=== PATIENT | female | born 1995 | race Caucasian/White ===

== ENCOUNTER 2020-03-09 03:27 | Inpatient (IN) | payer BC, MEDICAID ==
[2020-03-09 04:32] LABS: APPEARANCE,URINE CLOUDY; BILIRUBIN,URINE NEGATIVE (NEGATIVE); COLOR,URINE YELLOW; GLUCOSE, URINE NEGATIVE (NEGATIVE); KETONES,URINE NEGATIVE (NEGATIVE); LEUKOCYTE ESTERASE,URINE MODERATE (NEGATIVE); NITRITE,URINE NEGATIVE (NEGATIVE); PROTEIN,URINE NEGATIVE (NEGATIVE); URINE SPECIFIC GRAVITY 1.018; UROBILINOGEN,URINE NEGATIVE mg/dL (<2.0)
[2020-03-09 04:48] LABS: URINE BARBITURATES SCREEN NEGATIVE; URINE BENZODIAZEPINES SCREEN NEGATIVE; URINE COCAINE SCREEN NEGATIVE; URINE MARIJUANA (THC) SCREEN NEGATIVE; URINE METHADONE SCREEN NEGATIVE; URINE PHENCYCLIDINE SCREEN NEGATIVE
[2020-03-09 04:52] LABS: URINE AMPHETAMINES SCREEN NEGATIVE
[2020-03-09] MEDS ORDERED: RINGERS SOLUTION,LACTATED 1,000 ML IV ONE (05:42)
[2020-03-09] MEDS: RINGERS SOLUTION,LACTATED 1,000 ML IV PRN ×3 (06:02→16:17)
[2020-03-09] MEDS ORDERED: OXYTOCIN/0.9 % SODIUM CHLORIDE 30 UNIT/500 ML RTUINJ IV PRN ×2 (07:00→17:49)
[2020-03-09] MEDS ORDERED: OXYTOCIN 10 UNIT/ML VIAL ONE (07:21)
[2020-03-09] MEDS ORDERED: OXYTOCIN/0.9 % SODIUM CHLORIDE 30 UNIT/500 ML RTUINJ ONE (07:21)
[2020-03-09] MEDS ORDERED: LIDOCAINE 1% INJ-PF (10 MG/ML) 30 ML SDV ONE (07:21)
[2020-03-09] MEDS ORDERED: MISOPROSTOL 0.2 MG TABLET ONE (07:21)
[2020-03-09 08:37] LABS: ABSOLUTE BASOPHILS # (AUTO) 0.1 10^3/uL (0.0-0.2); ABSOLUTE EOSINOPHILS # (AUTO) 0.1 10^3/uL (0.0-0.6); ABSOLUTE LYMPHOCYTES (AUTO) 2.5 10^3/uL (0.5-4.7); ABSOLUTE NEUT (AUTO) 9.3 10^3/uL (1.7-8.2); BASOPHILS % (AUTO) 0.8 % (0-2); EOSINOPHILS % (AUTO) 0.5 % (0-6); HEMOGLOBIN 12.7 g/dL (12.0-15.5); LYMPHOCYTES % (AUTO) 19.3 % (13-45); MEAN CORPUSCULAR HEMOGLOBIN 26.5 pg (27.0-33.4); MEAN CORPUSCULAR HGB CONC 33.3 g/dL (32.0-36.0); MEAN CORPUSCULAR VOLUME 80 fl (80-97); MONOCYTES % (AUTO) 7.9 % (3-13); PLATELET COUNT 301 10^3/uL (150-450); RED BLOOD COUNT 4.77 10^6/uL (3.72-5.28); RED CELL DISTRIBUTION WIDTH 14.2 % (11.5-14.0); SEGMENTED NEUTROPHILS % (AUTO) 71.5 % (42-78); TOTAL CELLS COUNTED % (AUTO) 100 %
[2020-03-09] MEDS ORDERED: NALBUPHINE HCL INJ 10 MG/1 ML AMPULE ONE (08:51)
[2020-03-09] MEDS ORDERED: PROMETHAZINE HCL INJ 25 MG/1 ML VIAL ONE (08:51)
--- NOTE | 2020-03-09 10:31 | Admission Physical ---
Datetime Report Generated by CPN: 03/09/2020 10:30 CURRENT ADMISSION Chief Complaint: Suspected Ruptured Membranes Indication for Induction: Other Admit Impression : Term, Intrauterine Admit Plan: Admit to Unit; Initiate Labor Induction Protocol ALLERGIES Medication Allergies: No Medication Allergies: No Known Allergies (03/09/2020) Latex: No Latex Allergies (Annotations: Data stored by CPN on behalf of user) OBSTETRICAL HISTORY EDC: 03/04/2020 00:00 : 1 Para: 0 Gestational Diabetes: No Rh Sensitization: No Incompetent Cervix: No JOAQUIN: No Infertility: No ART Treatment: No Uterine Anomaly: No IUGR: No Hx Previous C/S: No Macrosomia: No Hx Loss/Stillborn: No PIH: No Hx : No Placenta Previa/Abruption: No Depression/PP Depression: No PTL/PROM: No Post Hemorrhage: No Current Procedures: Ultrasound; NST Obstetrical History Comments: G1 - current MEDICAL HISTORY Diabetes: No Blood Transfusion: No Pulmonary Disease (Asthma, TB): No Breast Disease: No Hypertension: No Kindergarten Paraprofessional Surgery: No Heart Disease: No Hosp/Surgery: No Autoimmune Disorder: No Anesthetic Complications: No Kidney Disease: No Abnormal Pap Smear: No Neuro/Epilepsy: No Psychiatric Disorders: No Other Medical Diseases: No Hepatitis/Liver Disease: No Significant Family History: No Varicosities/Phlebitis: No Trauma/Violence : No Thyroid Dysfunction: No INFECTIOUS HISTORY Gonorrhea: No Genital Herpes: No Chlamydia: No Tuberculosis: No Syphilis: No Hepatitis: No HIV/AIDS Exposure: No Rash or Viral Illness: No HPV: No PHYSICAL EXAM General: Normal HEENT: Normal Neurologic: Normal Thyroid: Normal Heart: Normal Lungs: Normal Breast: Deferred Back: Normal Abdomen: Normal Genitourinary Exam: Normal Extremities: Normal DTRs: Normal Pelvic Type: Adequate FETUS A EGA: 40.5 INFORMED CONSENT Signature: with User ID: [email or web address]
[2020-03-09] MEDS ORDERED: ONDANSETRON HCL INJ/PF 4 MG/2 ML SDV ONE (11:33)
[2020-03-09] MEDS ORDERED: EPHEDRINE SULFATE INJ 50 MG/1 ML AMPULE ONE (12:06)
[2020-03-09] MEDS ORDERED: FENTANYL/BUPIVACAINE/NS/PF 300 MCG/150 ML RTUINJ EPI ONE (12:07)
[2020-03-09] MEDS ORDERED: ROPIVACAINE HCL 0.2% INJ/PF (2 MG/ML) 20 ML SDV ONE (12:07)
[2020-03-09] MEDS ORDERED: HYDROXYZINE HCL INJ 50 MG/1 ML VIAL INJ ONE (16:00)
[2020-03-09] MEDS ORDERED: ACETAMINOPHEN 650 MG SUPP.RECT PR PRN (17:49)
[2020-03-09] MEDS ORDERED: DIBUCAINE 1% OINTMENT 28 GM TP PRN (17:49)
[2020-03-09] MEDS ORDERED: DIPH/PERTUSS(ACELL)/TETANUS VAC/PF 0.5 ML SYR (>=10YO) IM PRN (17:49)
[2020-03-09] MEDS ORDERED: FAMOTIDINE 20 MG TABLET PO PRN (17:49)
[2020-03-09] MEDS ORDERED: MEASLES,MUMPS&RUBELLA VACC/PF 0.5 ML VIAL SUBCUT PRN (17:49)
[2020-03-09] MEDS ORDERED: PSEUDOEPHEDRINE HCL 30 MG TABLET PO PRN (17:49)
[2020-03-09] MEDS ORDERED: ZOLPIDEM TARTRATE 5 MG TABLET PO PRN (17:49)
[2020-03-09] MEDS ORDERED: ACETAMINOPHEN 325 MG TABLET PO PRN (17:49)
[2020-03-09] MEDS ORDERED: DIPHENHYDRAMINE HCL 25 MG CAPSULE PO PRN (17:49)
[2020-03-09] MEDS ORDERED: MAG HYDROX/AL HYDROX/SIMETH SUSP 30 ML UDCUP PO PRN (17:49)
[2020-03-09] MEDS ORDERED: GLYCERIN/WITCH HAZEL LEAF 1 EACH MED..WIPE TP PRN (17:49)
[2020-03-09] MEDS ORDERED: VARICELLA VACC/PF (1350 UNIT/0.5 ML) 0.5 ML VIAL SUBCUT PRN (17:49)
[2020-03-09] MEDS ORDERED: MAGNESIUM HYDROXIDE SUSP 30 ML UDCUP PO PRN (17:49)
--- NOTE | 2020-03-09 18:33 | Warning Signs in Babies ---
VOD Warning Signs Datetime Report Generated by N: 03/09/2020 18:33 VOD#[id number] -Warning Signs in Babies: Viewed with Parent(s)/Family (03/09/2020 18:30:Yari Dickson RN)
--- NOTE | 2020-03-09 19:22 | Delivery Summary ---
Del Sum A-C Datetime Report Generated by CPN: 03/09/2020 19:22 DELIVERY PERSONNEL DELIVERY PERSONNEL: [id number] Delivery Doctor:: Sabino Najera MD Labor and Delivery Nurse:: Yari Dickson RNexterminator Nurse:: Akash Sy RN Nursery Nurse:: Brandi Carrasquillo RN Radiation Engineer/LOGGING SUPERVISOR: Leah Paul, SCRAPER HAND Additional Personnel: : HermanRN MATERNAL INFORMATION Delivery Anesthesia: Epidural Medications After Delivery: Pitocin 30 Units in 500ml NS/D5W Delivery QBL: 75 Maternal Complications: Premature Rupture of Membranes LABOR SUMMARY EDC: 03/04/2020 00:00 No. Babies in Womb: 1 Attempted: No Labor Anesthesia: Epidural LABOR INFORMATION Reason for Induction: Not Applicable Onset of Labor: 03/09/2020 05:30 Complete Dilatation: 03/09/2020 16:53 Oxytocin: Augmentation Group B Beta Strep: negative Antibiotics # of Doses: 0 Name of Antibiotic Given: N/A Steroids Given: None Reason Steroids Not Administered: Not Applicable MEMBRANES Membranes Rupture Method: Spontaneous Rupture of Membranes: 03/09/2020 05:30 Length of Rupture (hr): 12.18 Amniotic Fluid Color: Clear Amniotic Fluid Amount: Small Amniotic Fluid Odor: None STAGES OF LABOR Stage 1 hr: 11 Stage 1 min: 23 Stage 2 hr: 0 Stage 2 min: 48 Stage 3 hr: 0 Stage 3 min: 3 Total Time in Labor hr: 12 Total Time in Labor min: 14 VAGINAL DELIVERY Episiotomy: None Laceration #1: Vaginal Laceration Extension #1: N/A Laceration Repair: Yes Sponge Count Correct: Yes Sharps Count Correct: Yes CSECTION DELIVERY Primary Indication: N/A Secondary Indication: N/A CSection Incidence: N/A Labor: N/A Elective: N/A CSection Incision: N/A BABY A INFORMATION Infant Delivery Date/Time: 03/09/2020 17:41 Method of Delivery: Vaginal Nurse Controlled Delivery: No Born in Route : No : N/A Forceps: N/A Vacuum Extraction: N/A Shoulder Dystocia : No PRESENTATION/POSITION BABY A Presentation: Cephalic Cephalic Presentation: Vertex Vertex Position: Right Occipital Anterior Breech Presentation: N/A PLACENTA INFORMATION BABY A Placenta Delivery Time : 03/09/2020 17:44 Placenta Method of Delivery: Expressed Placenta Status: Delivered SCORES BABY A Heart Rate 1 min: >100 bpm Resp Effort 1 min: Good Cry Reflex Irritability 1 min: Cough or Sneeze or Pulls Away Muscle Tone 1 min: Active Motion Color 1 min: Body Bowler, Extremities Blue Resuscitation Effort 1 min: Tactile Stimulation SCORE 1 MIN: 9 Heart Rate 5 min: >100 bpm Resp Effort 5 min: Good Cry Reflex Irritability 5 min: Cough or Sneeze or Pulls Away Muscle Tone 5 min: Active Motion Color 5 min: Body Bowler, Extremities Blue Resuscitation Effort 5 min: Tactile Stimulation SCORE 5 MIN: 9 INFORMATION BABY A Gestational Age at Delivery: 40.5 Gestational Status: Full Term- 39- 40.6 Weeks Infant Outcome : Liveborn Infant Condition : Stable Infant Sex: Female IDENTIFICATION BABY A Infant Verification Date/Time: 03/09/2020 17:47 ID Band Number: [id number] Mother's Name Verified: Yes RN Verifying Infant: B Barrie RN/C Nohemy RN WEIGHT/LENGTH BABY A Infant Birthweight (gm): 2714 Infant Weight (lb): 6 Infant Weight (oz): 0 Length (in): 18.75 Infant Length (cm): 47.63 CORD INFORMATION BABY A No. Cord Vessels: 3 Nuchal Cord : N/A Cord Blood Taken: Yes-For Storage (Mom's Blood type +) Suction: Mouth; Nose ASSESSMENT BABY A Complications: Multiple Variable Decels Physical Findings at Delivery: Within Normal Limits; Molding of the Head Respirations: Appears Normal Skin to Skin: Yes Director Of Religious Activities/ALS Called : No Infant Care By: Jaswinder Rizo RN Transferred To: Remains with Mother BABY B INFORMATION : N/A SIGNATURES Signature: with User ID: [email or web address]
--- NOTE | 2020-03-09 19:22 | Birth Certificate Data ---
Cert Data Datetime Report Generated by CPN: 03/09/2020 19:22 CERTIFICATE DATA Delivery Provider: Sabino Najera MD (03/09/2020 04:11:Akash Sy RN) 47a. Care: Yes (03/09/2020 04:11:Reva Sood RN) 47b. Date of First Visit: 09/05/2019 00:00 (03/09/2020 04:11:Reva Sood RN) 47c. Date of Last Visit: 03/05/2020 00:00 (03/09/2020 04:11:Reva Sood RN) 47d. Number of Visits: 10 (03/09/2020 04:11:Reva Sood RN) 48a. Number of Prev Live Births: 0 (03/09/2020 04:11:Milly Slater RN) 48b. Now Livin (03/09/2020 04:11:Milly Slater RN) 48c. Live Births Now : 0 (03/09/2020 04:11:QS system process) 48e. Losses: 0 (03/09/2020 04:11:Milly Slater RN) RISK FACTORS IN THIS 49a. Diabetes: No (03/09/2020 04:11:Joanna Rodriguez RN) 49b. Hypertension: No (03/09/2020 04:11:Joanna Rodriguez RN) 49c. Previous Births: 0 (03/09/2020 04:11:Milly Slater RN) 49d. Stillborns: No (03/09/2020 04:11:Joanna Rodriguez RN) 49d. IUGR: No (03/09/2020 04:11:Joanna Rodriguez RN) 49e. Infertility Treatment: No (03/09/2020 04:11:Joanna Rodriguez RN) 49f. Previous Cesareans: 0 (03/09/2020 04:11:Milly Slater RN) Mother's Height 50b. Height Inches: 62 (03/09/2020 03:40:QS system process) Mother's Weight 51a. Pre- Weight (lbs): 133 (03/09/2020 04:11:Reva Sood RN) 51b. Weight at Delivery (lbs): 163 (03/09/2020 03:40:QS system process) 52. Dt Last Normal Menses Began: 05/21/2019 00:00 (03/09/2020 04:11:Joanna Rodriguez RN) Infections Present/Treated 53a. Gonorrhea: No (03/09/2020 04:11:Joanna Rodriguez RN) Results this Hospital Visit : Negative (03/09/2020 04:11:Kari Rodriguez RN) 53b. Syphilis: No (03/09/2020 04:11:Joanna Rodriguez RN) 53c. Chlamydia: No (03/09/2020 04:11:Joanna Rodriguez RN) Results this Hospital Visit: Negative (03/09/2020 04:11:Kari Rodriguez RN) 53d. Hepatitis B: No (03/09/2020 04:11:Joanna Rodriguez RN) Results this Hospital Visit: Negative (03/09/2020 04:11:Joanna Rodriguez RN) 53e. Hepatitis C: Negative (03/09/2020 04:11:Kari Rodriguez RN) 53h. Mother Tested for HBsAG: Yes (03/09/2020 04:11:Kari Rodriguez RN) 53i. Date Tested: 09/05/2019 00:00 (03/09/2020 04:11:Kari Rodriguez RN) 53j. Test Result: Negative (03/09/2020 04:11:Joanna Rodriguez RN) Obstetric Procedures 54a, b, c. Obstetric Procedures: Ultrasound; NST (03/09/2020 04:11:Joanna Rodriguez RN) Cigarette Smoking Cigarette Smoking: Never Smoker. [id number] (03/09/2020 04:11:Reva Sood RN) Onset of Labor 56a. PROM >12 Hrs: 12.18 (03/09/2020 04:11:QS system process) 56b. Precipitous Labor <3 Hrs: 12 (03/09/2020 04:11:QS system process) 56c. Prolonged Labor > 20 Hrs: 12 (03/09/2020 04:11:QS system process) 57a. Induction of Labor: Augmentation (03/09/2020 04:11:Yari Dickson RN) 57c. Non-Vertex Presentation A: Vertex (03/09/2020 04:11:Akash Sy RN) 57d. Steroids - Lung Mat: None (03/09/2020 04:11:Yari Dickson RN) 57d. Steroids - Lung Mat: Not Applicable (03/09/2020 04:11:Yari Dickson RN) 57f. Mat [place] or Temp >100.4: 98.8 (03/09/2020 04:11:Thalia Caballero RN) 57g. Moderate/Heavy Meconium: Clear (03/09/2020 04:11:Yari Dickson RN) 57h. Intolerance of Labor: N/A (03/09/2020 04:11:Akash Sy RN) : N/A (03/09/2020 04:11:Milly Slater RN) 57i. Epidural/Spinal Anesthesia: Epidural (03/09/2020 04:11:Akash Sy RN) Method of Delivery 58a. Forceps - Unsuccessful A: N/A (03/09/2020 04:11:Akash Sy RN) 58b. Vacuum - Unsuccessful A: N/A (03/09/2020 04:11:Akash Sy RN) 58c. Presentation at 58c. Presentation at - A : Vertex (03/09/2020 04:11:Akash Sy RN) 58c. Presentation at - A : N/A (03/09/2020 04:11:Akash Sy RN) 58c. Presentation at - A : Cephalic (03/09/2020 04:11:Akash Sy RN) Final Route and Method of Del 58d. Baby A Route/Delivery: Vaginal (03/09/2020 17:41:Akash Sy RN) 58e. Trial of Labor Attempted: No (03/09/2020 04:11:Yari Dickson RN) 58e. Trial of Labor Attempted A: N/A (03/09/2020 04:11:Yari Dickson RN) 58e. Trial of Labor Attempted B: N/A (03/09/2020 04:11:Yari Dickson RN) Maternal Morbidity 59b. 3rd or 4th Degree Lacs: Vaginal (03/09/2020 04:11:Reva Sood RN) Birthweight Baby A: 2714 (03/09/2020 04:11:Thalia Caballero RN) 60a. Pounds : 6 (03/09/2020 04:11:QS system process) 60b. Ounces: 0 (03/09/2020 04:11:QS system process) 61. GA at Delivery Baby A: 40.5 (03/09/2020 04:11:Milly Slater RN) : Full Term- 39- 40.6 Weeks (03/09/2020 04:11:QS system process) 62a. 5 Minute Baby A: 9 (03/09/2020 04:11:QS system process)
[2020-03-09] MEDS: IBUPROFEN 800 MG TABLET PO SCH (22:12)
[2020-03-10] MEDS: ACETAMINOPHEN WITH CODEINE #3 TABLET PO PRN ×2 (04:33→18:10)
[2020-03-10] MEDS: IBUPROFEN 800 MG TABLET PO SCH ×3 (06:21→22:28)
[2020-03-10 06:51] LABS: HEMATOCRIT 31.8 % (36.0-47.0); HEMOGLOBIN 10.8 g/dL (12.0-15.5); MEAN CORPUSCULAR VOLUME 79 fl (80-97); PLATELET COUNT 247 10^3/uL (150-450); RED BLOOD COUNT 4.01 10^6/uL (3.72-5.28); WHITE BLOOD COUNT 15.8 10^3/uL (4.0-10.5)
[2020-03-10] MEDS: PRENATAL VITAMIN W DHA CAPSULE PO SCH (09:19)
[2020-03-10] MEDS: SENNOSIDES/DOCUSATE 8.6-50 MG 1 EACH TABLET PO SCH (09:20)
[2020-03-10] MEDS: FERROUS SULFATE 325 MG TABLET PO SCH ×3 (09:20→17:18)
[2020-03-10] MEDS: DOCUSATE SODIUM 100 MG CAPSULE PO SCH ×3 (09:20→17:18)
--- NOTE | 2020-03-10 12:03 | PDOC PROGRESS REPORT ---
Subjective-OB Progress Note for:: 03/10/20 Subjective: reports bleeeding slowing, pain controlled with current meds. denies needs Physical Exam (OB) Vital Signs: Temp Pulse Resp BP Pulse Ox 97.5 F 71 16 112/61 100 03/10/20 11:14 03/10/20 11:14 03/10/20 11:14 03/10/20 11:14 03/10/20 11:14 Intake & Output 03/09/20 03/10/20 03/11/20 06:59 06:59 06:59 Intake Total 1582 380 Balance 1582 380 Weight 74.4 kg - Maternal Morbidity 59. Maternal Morbidity (serious complications experinced by the mother associated with labor and delivery: None of the above - Abdomen Description: Soft Hernia Present: No Fundal Description: Firm, Midline Fundal Height: u/u - u/2 - Abdominal Distension: No distension Tenderness: Nontender - Extremities Lower extremities: Juan Carlos's sign - neg Calf: Normal, Nontender Objective-Diagnostic Laboratory: 03/10/20 06:06 03/10/20 06:06 WBC 15.8 H RBC 4.01 Hgb 10.8 L Hct 31.8 L MCV 79 L MCH 27.0 MCHC 34.0 RDW 14.0 Plt Count 247 Assessment and Plan(PN) - Time Spent with Patient Time with patient: Less than 15 minutes Medications reviewed and adjusted accordingly: Yes - Disposition Anticipated Discharge Disposition: Home, Self Care Anticipated Discharge Timeframe: within 24 hours
[2020-03-10] MEDS: BENZOCAINE/MENTHOL AEROSOL SPRAY 56 ML TOP PRN (23:14)
[2020-03-11] MEDS: IBUPROFEN 800 MG TABLET PO SCH ×2 (06:00→13:36)
[2020-03-11] MEDS: DOCUSATE SODIUM 100 MG CAPSULE PO SCH (09:01)
[2020-03-11] MEDS: FERROUS SULFATE 325 MG TABLET PO SCH (09:01)
[2020-03-11] MEDS: SENNOSIDES/DOCUSATE 8.6-50 MG 1 EACH TABLET PO SCH (09:01)
[2020-03-11] MEDS: PRENATAL VITAMIN W DHA CAPSULE PO SCH (09:01)
--- NOTE | 2020-03-11 09:05 | PDOC PROGRESS REPORT ---
Subjective-OB Progress Note for:: 03/11/20 Subjective: Doing well, ready to go home, , ambulating, eating well, scant lochia Physical Exam (OB) Vital Signs: Temp Pulse Resp BP Pulse Ox 97.7 F 70 20 95/58 L 98 03/11/20 07:35 03/11/20 07:35 03/11/20 07:35 03/11/20 07:35 03/11/20 07:35 Intake & Output 03/10/20 03/11/20 03/12/20 06:59 06:59 06:59 Intake Total 1582 680 Balance 1582 680 - PIH/Pre-Eclampsia DTR's: 1 + Clonus: Negative Headache: Absent Epigastric Pain: No Visual Changes: No - Maternal Morbidity 59. Maternal Morbidity (serious complications experinced by the mother associated with labor and delivery: None of the above - Lochia Lochia Amount: Scant < 10 ml Lochia Color: Rubra/Red - Abdomen Description: Soft Hernia Present: No Fundal Description: Firm, Midline Fundal Height: u/u - u/2 Objective-Diagnostic Laboratory: 03/10/20 06:06 Assessment and Plan(PN) - Assessment and Plan (1) Vaginal laceration Qualifiers: Vaginal laceration type: obstetric Perineal laceration degree: first degree Is this a current diagnosis for this admission?: Yes (2) Vaginal delivery Is this a current diagnosis for this admission?: Yes - Time Spent with Patient Time with patient: Less than 15 minutes Medications reviewed and adjusted accordingly: Yes - Disposition Anticipated Discharge Disposition: Home, Self Care Anticipated Discharge Timeframe: within 24 hours - home today
--- NOTE | 2020-03-11 09:09 | PDOC DISCHARGE SUMMARY ---
Impression - Admit/DC Date/PCP Admission Date/Primary Care Provider: 03/09/20 05:40 APOLLO CRAWFORD MD Discharge Date: 03/11/20 - Discharge Diagnosis (1) Vaginal laceration Is this a current diagnosis for this admission?: Yes (2) Vaginal delivery Is this a current diagnosis for this admission?: Yes - Additional Information Resuscitation Status: Full Code Discharge Diet: As Tolerated, Regular Discharge Activity: Activity As Tolerated, Pelvic Rest Referrals: APOLLO CRAWFORD MD [Primary Care Provider] - (wha 4 weeks) Home Medications: Vit/Dha [ Multi + Dha Capsule] 1 cap PO DAILY capsule 03/11/20 HPI Gestational Age: 40.5 Reason(s) for Admission: Onset of Labor Procedures: NST, Ultrasound Intrapartum Procedure(s): Spontaneous Vaginal Delivery Complication(s): Laceration-Vaginal Laceration-Degree: 1st Hospital Course Hospital Course: routine 59. Maternal Morbidity (serious complications experinced by the mother associated with labor and delivery: None of the above Results Laboratory Results: WBC 15.8 10^3/uL (4.0-10.5) H 03/10/20 06:06 RBC 4.01 10^6/uL (3.72-5.28) 03/10/20 06:06 Hgb 10.8 g/dL (12.0-15.5) L 03/10/20 06:06 Hct 31.8 % (36.0-47.0) L 03/10/20 06:06 MCV 79 fl (80-97) L 03/10/20 06:06 MCH 27.0 pg (27.0-33.4) 03/10/20 06:06 MCHC 34.0 g/dL (32.0-36.0) 03/10/20 06:06 RDW 14.0 % (11.5-14.0) 03/10/20 06:06 Plt Count 247 10^3/uL (150-450) 03/10/20 06:06 Lymph % (Auto) 19.3 % (13-45) 03/09/20 08:16 [place] % (Auto) 7.9 % (3-13) 03/09/20 08:16 Eos % (Auto) 0.5 % (0-6) 03/09/20 08:16 Baso % (Auto) 0.8 % (0-2) 03/09/20 08:16 Absolute Neuts (auto) 9.3 10^3/uL (1.7-8.2) H 03/09/20 08:16 Absolute Lymphs (auto) 2.5 10^3/uL (0.5-4.7) 03/09/20 08:16 Absolute Monos (auto) 1.0 10^3/uL (0.1-1.4) 03/09/20 08:16 Absolute Eos (auto) 0.1 10^3/uL (0.0-0.6) 03/09/20 08:16 Absolute Basos (auto) 0.1 10^3/uL (0.0-0.2) 03/09/20 08:16 Seg Neutrophils % 71.5 % (42-78) 03/09/20 08:16 Urine Color YELLOW 03/09/20 03:35 Urine Appearance CLOUDY 03/09/20 03:35 Urine pH 7.0 (5.0-9.0) 03/09/20 03:35 Ur Specific [place] 1.018 03/09/20 03:35 Urine Protein NEGATIVE mg/dL (NEGATIVE) 03/09/20 03:35 Urine Glucose (UA) NEGATIVE mg/dL (NEGATIVE) 03/09/20 03:35 Urine Ketones NEGATIVE mg/dL (NEGATIVE) 03/09/20 03:35 Urine Blood MODERATE (NEGATIVE) H 03/09/20 03:35 Urine Nitrite NEGATIVE (NEGATIVE) 03/09/20 03:35 Urine Bilirubin NEGATIVE (NEGATIVE) 03/09/20 03:35 Urine Urobilinogen NEGATIVE mg/dL (<2.0) 03/09/20 03:35 Ur Leukocyte Esterase MODERATE (NEGATIVE) H 03/09/20 03:35 Urine Ascorbic Acid NEGATIVE (NEGATIVE) 03/09/20 03:35 Membranes Rupture POSITIVE (NEGATIVE) H 03/09/20 04:53 Urine Opiates Screen NEGATIVE 03/09/20 03:35 Urine Methadone Screen NEGATIVE 03/09/20 03:35 Ur Barbiturates Screen NEGATIVE 03/09/20 03:35 Ur Phencyclidine Scrn NEGATIVE 03/09/20 03:35 Ur Amphetamines Screen NEGATIVE 03/09/20 03:35 U Benzodiazepines Scrn NEGATIVE 03/09/20 03:35 Urine Cocaine Screen NEGATIVE 03/09/20 03:35 U Marijuana (THC) Screen NEGATIVE 03/09/20 03:35 RPR NONREACTIVE (NONREACTIVE) 03/09/20 08:16 Blood Type A POSITIVE 03/09/20 08:16 Antibody Screen NEGATIVE 03/09/20 08:16 Plan Health Concerns: routine pp Plan of Treatment: gabino murrell, rev S&S to report Goals: no complications Time Spent: Less than 30 Minutes
[2020-03-11 09:44] VITALS: BP 94/59
[2020-03-11] MEDS: BENZOCAINE/MENTHOL AEROSOL SPRAY 56 ML TOP PRN (15:45)
== END 2020-03-11 18:10 | disposition home or self-care (01) | DRG 807 ==
LOC: LC 03:27 → LR 05:40 → 2S 20:00
PROVIDERS: ADMIT Obstetrics & Gynecology Gynecology; ATTEND Obstetrics & Gynecology Gynecology
PROC: 10E0XZZ Delivery of Products of Conception, External Approach (ICD-10-PCS; principal; 2020-03-09)
PROC: 0HQ9XZZ Repair Perineum Skin, External Approach (ICD-10-PCS; 2020-03-09)
DX: O70.0 First degree perineal laceration during delivery (principal); Z37.0 Single live birth; Z20.828 Contact with and (suspected) exposure to other viral communicable diseases; Z3A.40 40 weeks gestation of pregnancy
CPT/HCPCS: 1967; 36415; 80307; 81005; 84112; 85025; 85027; 86592; 86850; 86900; 86901; 94760; J2300; J2405; J2550; J2590; J2795; J3010; J3410; J3490